=== PATIENT | female | born 1985 | race African-American/Black ===

== ENCOUNTER 2025-01-23 05:06 | Emergency (ER) | payer OTHER ==
[~2025-01-23] VITALS: Ht 157.5 cm; Wt 73.0 kg
[2025-01-23 05:10] VITALS: TEMP 36.9; O2SAT 100
[2025-01-23 07:36] VITALS: BP 122/87; PULSE 110; RESP 18
[2025-01-23] MEDS: HYDROCODONE/ACETAMINOPHEN 5/325MG TABLET PO ONE (07:36)
[2025-01-23] MEDS ORDERED: ACETAMINOPHEN 500MG TABLET PO ONE (08:00)
[2025-01-23 08:11] LABS: HEMATOCRIT. 40.2 % (36.0-48.0); HEMOGLOBIN. 13.4 g/dL (12.0-16.0); MEAN CORPUSCULAR HEMOGLOBIN 30.6 pg (28.0-32.0); MEAN CORPUSCULAR HGB CONC 33.3 g/dL (31.0-37.0); MEAN CORPUSCULAR VOLUME 91.9 fL (81.0-99.0); MEAN PLATELET VOLUME 9.4 fl (7.4-10.4); PLATELET 412 x1000/uL (130-400); RED BLOOD CELL COUNT 4.38 mill/uL (4.2-5.4); RED CELL DISTRIBUTION WIDTH 16.5 % (11.6-14.6); WHITE BLOOD COUNT 11.3 x1000/uL (4.5-11.0)
[2025-01-23 08:19] LABS: CHLORIDE 102 mEq/L (98-107); POTASSIUM 3.9 mEq/L (3.5-5.1); SODIUM 137 mEq/L (136-145)
[2025-01-23 08:20] LABS: CALCIUM 9.3 mg/dL (8.7-10.4); CARBON DIOXIDE 23 mEq/L (21-32)
[2025-01-23 08:25] LABS: CREATININE 0.8 mg/dL (0.6-1.0); GLUCOSE 130 mg/dL (70-105)
[2025-01-23 08:27] LABS: ALANINE AMINOTRANSFERASE 11 IU/L (10-49); ALBUMIN 4.2 g/dL (3.2-4.8)
[2025-01-23 08:28] LABS: BILIRUBIN TOTAL 0.2 mg/dL (0.1-1.0); PROTEIN TOTAL 8.5 g/dL (6.0-8.3)
[2025-01-23 08:30] LABS: DIFFERENTIAL COMMENT 1
[2025-01-23] MEDS ORDERED: AMOX1TAB16 MT (08:36)
[2025-01-23] MEDS ORDERED: ACET-2708 MT (08:36)
[2025-01-23 08:37] LABS: UREA NITROGEN BLOOD < 5 mg/dL (9-23)
[2025-01-23 08:55] LABS: CLARITY URINE CLOUDY (CLEAR); COLOR URINE DARK YELLOW (YELLOW); GLUCOSE URINE NEGATIVE (NEGATIVE); KETONES URINE 1+ (NEGATIVE); LEUKOCYTE ESTERASE URINE NEGATIVE (NEGATIVE); NITRITE URINE NEGATIVE (NEGATIVE); OCCULT BLOOD URINE NEGATIVE (NEGATIVE); PROTEIN URINE 1+ (NEGATIVE); SPECIFIC GRAVITY URINE 1.032 (1.005-1.030)
[2025-01-23 09:17] LABS: SQUAMOUS EPITHELIAL CELL URINE 1+ /lpf (RARE/1+)
[2025-01-23 09:18] LABS: BACTERIA URINE 1+; MUCUS URINE 1+ /lpf (< = 2+)
[2025-01-23 09:20] LABS: RBC URINE NONE SEEN /hpf (0-2)
[2025-01-23 10:04] LABS: PLATELET ESTIMATE SLIGHTLY INCREASED
[2025-01-23 10:46] LABS: ASPARTATE AMINOTRANSFERASE 21 IU/L (<34)
== END 2025-01-23 09:47 | disposition home or self-care (01) ==
LOC: ER 05:06
DX: R51.9 Headache, unspecified (principal); F41.9 Anxiety disorder, unspecified; Z88.6 Allergy status to analgesic agent; Z98.84 Bariatric surgery status
CPT/HCPCS: 36415; 80053; 81003; 81025; 84450; 85025; 99283

== ENCOUNTER 2025-04-02 00:12 | Emergency (ER) | payer OTHER ==
[~2025-04-02] VITALS: Ht 162.6 cm; Wt 77.0 kg
[~2025-04-02 00:12] MED LIST: ACET-2708 MT; AMOX1TAB16 MT
[2025-04-02 00:25] VITALS: O2SAT 99
[2025-04-02] MEDS: SODIUM CHLORIDE 0.9% 1,000 ML IV ONE (01:45)
[2025-04-02 04:36] LABS: BASOPHILS % 0.2 % (0.0-2.0); HEMATOCRIT. 33.1 % (36.0-48.0); HEMOGLOBIN. 10.8 g/dL (12.0-16.0); LYMPHOCYTES % 36.5 % (20.0-50.0); MEAN CORPUSCULAR HEMOGLOBIN 29.8 pg (28.0-32.0); MEAN CORPUSCULAR HGB CONC 32.6 g/dL (31.0-37.0); MEAN CORPUSCULAR VOLUME 91.6 fL (81.0-99.0); MONOCYTES % 7.4 % (2.0-8.0); NEUTROPHILS % 44.9 % (40.0-76.0); PLATELET 275 x1000/uL (130-400); RED BLOOD CELL COUNT 3.61 mill/uL (4.2-5.4); RED CELL DISTRIBUTION WIDTH 17.4 % (11.6-14.6); WHITE BLOOD COUNT 3.2 x1000/uL (4.5-11.0)
[2025-04-02 04:44] LABS: CARBON DIOXIDE 23 mEq/L (21-32); CHLORIDE 107 mEq/L (98-107); SODIUM 138 mEq/L (136-145)
[2025-04-02 04:45] LABS: CALCIUM 8.7 mg/dL (8.7-10.4)
[2025-04-02 04:46] LABS: INR 1.1; PROTHROMBIN TIME 11.3 sec (9.6-11.0)
[2025-04-02 04:49] LABS: CREATININE 0.7 mg/dL (0.6-1.0); GLUCOSE 71 mg/dL (70-105)
[2025-04-02 04:50] LABS: ETHANOL BLOOD < 10 mg/dL (<10); UREA NITROGEN BLOOD 6 mg/dL (9-23)
[2025-04-02 04:51] LABS: ALANINE AMINOTRANSFERASE 43 IU/L (10-49); ALBUMIN 3.9 g/dL (3.2-4.8); ASPARTATE AMINOTRANSFERASE 90 IU/L (<34)
[2025-04-02 04:52] LABS: BILIRUBIN DIRECT 0.1 mg/dL (<=3.0); BILIRUBIN TOTAL 0.4 mg/dL (0.1-1.0); PROTEIN TOTAL 6.9 g/dL (6.0-8.3)
[2025-04-02 05:00] LABS: HCG SCREEN NEGATIVE
[2025-04-02] MEDS: ACETAMINOPHEN 1000MG/100ML 100 ML IV ONE (06:07)
[2025-04-02] MEDS: MORPHINE SULFATE 4 MG/ML INJ (FOR IV/IM USE) IV NR (07:15)
[2025-04-02 08:46] VITALS: BP 121/79; PULSE 72; RESP 17; TEMP 36.7; O2SAT 99
== END 2025-04-02 10:26 | disposition left against medical advice (07) ==
LOC: ER 00:12 → EDBEDREQ 06:47 → CANRESERV 08:43 → ENRESERV 08:43 → CANBEDREQ 09:26 → ER 09:33
DX: F10.129 Alcohol abuse with intoxication, unspecified (principal); Y90.9 Presence of alcohol in blood, level not specified
CPT/HCPCS: 80076; 80048; 80320; 84703; 83690; 85025; 85610; 36415; 74176; 96361; 96365; 96375; 99285; J2270; J7030; G0480; J0131